=== PATIENT | male | born 1970 | race Two or more races ===

== ENCOUNTER → 2020-04-19 | Outpatient (CLI) | payer OTHER | END | disposition home or self-care (01) | LOC: LAB SALUS 09:00 | PROVIDERS: ATTEND General Practice | DX: Z11.4 Encounter for screening for human immunodeficiency virus [HIV] (principal); Z12.11 Encounter for screening for malignant neoplasm of colon; Z72.51 High risk heterosexual behavior; Z11.3 Encounter for screening for infections with a predominantly sexual mode of transmission; Z13.220 Encounter for screening for lipoid disorders ==

== ENCOUNTER 2020-10-11 08:51 | Day surgery (SDC) | payer OTHER | END 2020-10-11 14:55 | disposition home or self-care (01) | LOC: AMB-ENDOS 08:51 | PROVIDERS: ATTEND Surgery | DX: D12.2 Benign neoplasm of ascending colon (principal); D12.5 Benign neoplasm of sigmoid colon; Z20.828 Contact with and (suspected) exposure to other viral communicable diseases ==

== ENCOUNTER 2022-04-15 10:03 | Outpatient (CLI) | payer OTHER | END 2022-04-15 10:07 | disposition home or self-care (01) | LOC: RAD 10:03 | PROVIDERS: ATTEND Orthopaedic Surgery | DX: M25.461 Effusion, right knee (principal) ==

== ENCOUNTER 2025-09-24 05:37 | Emergency (ER) | payer OTHER ==
[~2025-09-24] VITALS: Ht 162.6 cm; Wt 83.9 kg
[2025-09-24] MEDS ORDERED: 0.9 % SODIUM CHLORIDE 1,000 ML IV STA (07:53)
[2025-09-24] MEDS ORDERED: TAMSULOSIN HCL 0.4 MG CAP PO STA (07:54)
[2025-09-24] MEDS ORDERED: MORPHINE SULFATE 4 MG/ML CARTRIDGE IV STA (07:54)
[2025-09-24] MEDS ORDERED: TAMSULOSIN HCL 0.4 MG CAP PO ONE (08:44)
[2025-09-24 09:28] LABS: BASO % 0.5 % (0.1-1.2); EOS # 0.04 (0.04-0.54); EOS % 0.4 % (0.7-7.0); LYMPH # 1.19 (1.18-3.74); LYMPH % 11.7 % (19.3-53.1); MEAN PLATELET VOLUME 10.30 fl (9.4-12.4); MONO # 0.76 (0.24-0.82); MONO % 7.5 % (4.7-12.5); NEUT # 8.08 (1.56-6.13); NEUT % 79.5 % (34.0-71.1); RED CELL DISTRIBUTION WIDTH 12.8 % (11.6-14.4)
[2025-09-24 09:45] LABS: INR 1.04
[2025-09-24 09:46] LABS: ERYTHROCYTE SEDIMENTATION RATE 2 mm/hr (0-20)
[2025-09-24 09:51] LABS: ALT/SGPT 42 U/L (12-78); AST/SGOT 21 U/L (15-37); BILIRUBIN TOTAL 0.67 mg/dL (0.3-1.2); BUN CREA RATIO 13 (7.0-25.0); CREATININE SERUM 1.42 mg/dL (0.70-1.30); GFR 51.76; GLOBULINA 3.5 G/DL (2.4-3.5); GLUCOSE FASTING 90 mg/dL (65-100); OSMOLALITY SERUM 289 MOSM/KG (275-295)
[2025-09-24] MEDS ORDERED: TAMS0.4C PO (10:18)
[2025-09-24] MEDS ORDERED: CIPRO500 MG PO (10:18)
== END 2025-09-24 10:36 | disposition home or self-care (01) ==
LOC: ER 05:37
PROVIDERS: Physician Assistant Medical
DX: N20.1 Calculus of ureter (principal); N23 Unspecified renal colic; I10 Essential (primary) hypertension